=== PATIENT | male | born 2005 | race Two or more races ===

== ENCOUNTER 2024-11-13 11:33 | Emergency (ER) | payer OTHER ==
[~2024-11-13] VITALS: Ht 167.6 cm; Wt 68.0 kg
[2024-11-13] MEDS ORDERED: KETOROLAC TROMETHAMINE INJ 30 MG/ML VIAL ONE (12:20)
[2024-11-13] MEDS ORDERED: CEPHALEXIN MONOHYDRATE 500 MG CAPSULE PO ONE (12:20)
[2024-11-13] MEDS ORDERED: SILVER SULFADIAZINE CREAM 25 GM TUBE ONE (12:21)
[2024-11-13] MEDS: KETOROLAC TROMETHAMINE INJ 30 MG/ML VIAL IM ONE (12:27)
[2024-11-13] MEDS: CEPHALEXIN MONOHYDRATE 500 MG CAPSULE PO ONE (12:28)
[2024-11-13] MEDS: SILVER SULFADIAZINE 50 GM JAR TP PRN (12:29)
[2024-11-13] MEDS ORDERED: oxyCODONE/APAP (5/325 MG) 1 UDTAB TABLET ONE (12:59)
[2024-11-13] MEDS: oxyCODONE/APAP (5/325 MG) 1 UDTAB TABLET PO ONE (13:09)
[2024-11-13] MEDS ORDERED: SILV50CR32 TP (13:18)
[2024-11-13 14:35] VITALS: BP 127/70; TEMP 98.5; O2SAT 98
== END 2024-11-13 14:36 | disposition home or self-care (01) ==
LOC: ER 11:42
DX: T23.201A Burn of second degree of right hand, unspecified site, initial encounter (principal); X19.XXXA Contact with other heat and hot substances, initial encounter; Y93.89 Activity, other specified; Y92.89 Other specified places as the place of occurrence of the external cause; Y99.8 Other external cause status
CPT/HCPCS: 99283; 16020; 96372; J1885